=== PATIENT | female | born 1995 | race Caucasian/White ===

== ENCOUNTER → 2018-01-14 | Outpatient (CLI) | payer OTHER ==
[~2018-01-14] MED LIST: ACET-1256 PO; ALBUAER19 INH; AMPH20CA3 PO; FEXO1TAB45 PO; IUD'IUD; QUET1TAB9 PO; VENL150T33 PO
[2018-01-16 14:52] LABS: VARICELLA ZOS VIR IGG VALUE >4000.00 INDEX
== END ==
LOC: C.LAB 15:38
PROVIDERS: ATTEND Pediatrics
DX: B01.9 Varicella without complication (principal)